=== PATIENT | male | born 1945 | race Caucasian/White ===

== ENCOUNTER 2018-05-16 09:57 | Inpatient (IN) ==
--- NOTE | 2018-05-01 16:30 | PAT Medication Instructions ---
Medication Instructions Date of Service May 01, 2018 Home Medications aspirin [Aspir-81] 81 mg PO HS cilostazol 50 mg PO BID coenzyme Q10 [CoQ-10] 200 mg PO QAM isosorbide mononitrate 30 mg PO QAM omeprazole 20 mg PO QAM ASK your prescriber and surgeon cilostazol (pletal) 50 mg PO BID (in order for spinal anesthesia, this medication needs to be stopped 4 days prior to surgery- please check with prescribing doctor to see if this is okay) STOP taking 2 weeks before surgery (or as soon as possible if surgery is within 2 weeks) coenzyme Q10 [CoQ-10] 200 mg PO QAM Take morning of surgery isosorbide mononitrate 30 mg PO QAM omeprazole 20 mg PO QAM Take evening before surgery aspirin [Aspir-81] 81 mg PO HS Other Notes If you have any questions please call us at [phone] or [phone] or [phone] or [phone]
--- NOTE | 2018-05-02 11:34 | Anesthesiology Consultation ---
Date of Service May 02, 2018 Assessment & Plan (1) Encounter for pre-operative examination: - Cardiovascular= 12/27/17= "doing well from a CV standpoint." Continued on current regimen. Note sent to PCP regarding 08/2017 stress test- per cardio "Mild apical inferior wall ischemia on 08/2017 stress test; reviewed by cardio and felt "no significant abnormalities." Note written to cardio regarding stress test/upcoming procedure. Response received= "Patient may proceed with above procedure with the following cardiac risk in having a perioperative event" at "low" risk. - Elevated creatinine on preop labs 1.83. Received response from nephro= 05/03/18= Baseline creatinine 1.4-1.5. "No apparent cause for increased creat; no nephro-toxic meds. Recommend renal U/S.. urine cx-- if no infxn or obstruction ok to proceed. Avoid IV contrast; BP extremes, NSAIDs." No infection on urine culture done 05/07/18. No obstruction per 05/09/18 renal U/S. Repeat BMP 05/07/18 with improved creatinine at 1.4. - Patient advised that Pletal (cilostazol) needs to be held 4 days prior to surgery in order for spinal anesthesia; per cardio, okay to hold Pletal 7 days prior to surgery per cardio; okay to continue ASA perioperatively per surgeon. - Patient requests heavier sedation if possible (does not want to hear surgery).* Chart Review Chart Review: Acceptable Risk for Surgery and Patient seen in Pre Admission Testing Teaching & Discussion Pre-Anesthesia Teaching/Discussion Notes: Instructed NPO after midnight before surgery,except medications with 15 cc of water. Medication instructions provided according to the PAT guidelines. History Surgery Operation Date: 05/16/18 12:45 Proposed Procedures p Right Total Knee Replacement - Shaquille Swartz MD Height/Weight Height: 5 ft 10 in Weight: 86.7 kg Allergies Allergy/AdvReac Type Severity Reaction Status Date / Time morphine Allergy Rash Verified 04/23/18 15:48 zolpidem [From Ambien] Allergy HEADACHES Verified 04/23/18 15:48 pregabalin [From Lyrica] AdvReac GI UPSET/ Verified 04/23/18 15:48 DOES NOT TOLERATE Medications Home Medications Medication Instructions Recorded Confirmed Last Taken aspirin [Aspir-81] 81 mg PO HS 04/23/18 04/23/18 Unknown cilostazol 50 mg PO BID 04/23/18 04/23/18 Unknown coenzyme Q10 [CoQ-10] 200 mg PO QAM 04/23/18 04/23/18 Unknown isosorbide mononitrate 30 mg PO QAM 04/23/18 04/23/18 Unknown omeprazole 20 mg PO QAM 04/23/18 04/23/18 Unknown Past Medical History Medical History Chronic kidney disease STAGE III Degenerative disc disease GERD (gastroesophageal reflux disease) CONTROLLED Hypertension Osteoarthritis PAD (peripheral artery disease) S/P VASCULAR STENTS X 2 (2006), LEFT POPLITEAL ARTHRECTOMY/ANGIOPLASTY + LEFT ANTERIOR TIBIAL (2010, 2013), LEFT TIBIOPERONEAL TRUNK ANGIOPLASTY (2013), LEFT ANTERIOR TIBIAL/POPLITEAL ARTERY ANGIOPLASTY (08/2017) Past Surgical History Surgical History History of adenoidectomy History of arthroscopy RIGHT KNEE MENISCUS REPAIR History of cardiac cath STENTS X2 (1998) History of cholecystectomy History of colonoscopy History of esophagogastroduodenoscopy (EGD) History of nasal septoplasty History of tonsillectomy History of vascular surgery S/P VASCULAR STENTS X 2 (2006), LEFT POPLITEAL ARTHRECTOMY/ANGIOPLASTY + LEFT ANTERIOR TIBIAL (2010, 2013), LEFT TIBIOPERONEAL TRUNK ANGIOPLASTY (2013), LEFT ANTERIOR TIBIAL/POPLITEAL ARTERY ANGIOPLASTY (08/2017) Past Anesthesia History No Family Hx of Anesthesia Complications and Other Awareness with cholecystectomy. No issues with other surgeries/anesthesia. History of PONV No Motion Sickness Screening History of Motion Sickness: No Social History Smoking Status: Never smoker Do You Dip or Chew Tobacco: No Hx Alcohol Use: No Alcohol Intake Frequency Comment: 0 Hx Substance Use: No substance use type: does not use Exercise / Class Metabolic Activity II 4-5 Yardwork/Stairs/Walk up hill (WALKING/EXERCISING DAILY*) Review of Systems Chronic cough. Patient denies chest pain, shortness of breath, dyspnea on exertion, wheezing, palpitations. Physical Exam Vital Signs VITALS BP 137/73 P 71 TEMP 97.4 SP02 96%RA RESP 18 PHYSICAL Full neck and c-spine range of motion. Full TMJ range of motion. TMD 3 finger breaths Mallampati Score 2 Dentition: full dentures upper/lower, edentulous Lungs: clear throughout to auscultation Cardiac: regular rate and rhythm, no murmurs noted Spine: normal Carotid arteries: negative bruit Extremities: no edema Testing Electrocardiogram Date: 08/15/17 Findings: + NSR @ (67) Chest X-Ray Date: 05/02/18 Findings: + NAD Stress Test Date: 08/15/17 Type: nuclear (Lexiscan) Myocardial perfusion is "mildly abnormal" with mild apical inferior wall ischemia. No evidence of previous myocardial infarction. LVEF 63%. 73%MPHR Other Testing Renal U/S: 05/09/18: no evidence of bladder outlet obstruction. Very mild prostatic gland enlargement with coarse calcifications suggesting remote prostatitis versus sequela of BPH. No hydroureteronephrosis or nephroureterolithiasis. Laboratory Results 05/02/18 11:50 05/02/18 11:50 Blood Type B Positive 05/02/18 11:50 Antibody Screen NEGATIVE 05/02/18 11:50 PT 11.4 Seconds (9.0-12.0) 05/02/18 11:50 INR 1.1 (0.9-1.1) 05/02/18 11:50 APTT 23.7 Seconds (21.0-31.0) 05/02/18 11:50 05/07/18 SODIUM 143 POTASSIUM 4.4 CHLORIDE 105 CO2 28 BUN 18 CREATININE 1.4 GLUCOSE 102 UA + bacteria URINE CULTURE no growth
--- NOTE | 2018-05-02 12:28 | XRay Report ---
XR chest Pre-admission PA/Lat CLINICAL HISTORY: pat preoperative evaluation COMPARISON STUDY: No previous studies for comparison. FINDINGS: The bones soft tissues and hemidiaphragms are normal. The cardiomediastinal silhouette is n ormal. The lungs are clear. The pulmonary vasculature is normal. IMPRESSION: Negative chest. The above report was generated using voice recognition software. It may contain grammatical, syntax or spelling errors. Electronically signed by: Boubacar Gagnon M.D. 05/02/2018 12:26 PM
[2018-05-02 12:32] LABS: Basophils # (auto) 0.01 K/uL (0-0.2); Basophils % (auto) 0.1 %; Eosinophils # (auto) 0.09 K/uL (0-0.5); Eosinophils % (auto) 1.3 %; Hematocrit (blood only) 41.7 % (42-52); Hemoglobin 13.9 g/dL (14.0-18.0); Immature Granulocytes # (auto) 0.03 K/uL (0.00-0.02); Immature Granulocytes % (auto) 0.4 %; Lymphocytes # (auto) 1.76 K/uL (1.2-3.4); Lymphocytes % (auto) 26.2 %; Mean Corpuscular Hgb Conc 33.3 g/dL (32-36); Mean Corpuscular Volume 102.2 fL (80-100); Mean Platelet Volume 11.6 fL (7.4-10.4); Monocytes # (auto) 1.05 K/uL (0.11-0.59); Monocytes % (auto) 15.6 %; Neutrophils # (auto) 3.79 K/uL (1.4-6.5); Neutrophils % (auto) 56.4 %; Platelet Count 163 K/uL (130-400); RDW Coefficient of Variation 12.8 % (11.5-14.5); RDW Standard Deviation 48.1 fL (36.4-46.3); Red Blood Count 4.08 M/uL (4.7-6.1); White Blood Count 6.73 K/uL (4.8-10.8)
[2018-05-02 12:44] LABS: INR 1.1 (0.9-1.1); Partial Thromboplastin Ratio 0.9; Partial Thromboplastin Time 23.7 Seconds (21.0-31.0); Prothrombin Time 11.4 Seconds (9.0-12.0)
[2018-05-02 13:19] LABS: BUN Creatinine Ratio 7.7 (10-20); Calcium 8.9 mg/dl (8.5-10.1); Creatinine Clr Calc Pharmacy 36.6 ml/min; Est GFR (African American) 41.2; Est GFR (Non-African American) 35.6; Potassium 4.5 mmol/L (3.5-5.1)
--- NOTE | 2018-05-12 10:43 | History and Physical Report ---
DATE OF ADMISSION: 05/16/2018 CHIEF COMPLAINT: Right knee pain and discomfort. HISTORY OF PRESENT ILLNESS: The patient is a 72-year-old gentleman from [place], who presents for surgical treatment of his right knee. He has got a several year history of gradually increasing right knee pain, discomfort, unresponsive to conservative treatment. He has undergone 3 previous knee arthroscopies with the last one done by Dr. Wilkinson several years ago. He has been through extensive conservative care including steroid shots and viscosupplementation, which do not help much anymore. The steroid shots helped her for couple days and the viscosupplementation did not help at all. He has nighttime discomfort. The more he walks, the more he limps. He describes global pain throughout the knee. It swell as the day goes on. He now would like to proceed with surgical treatment. PAST MEDICAL HISTORY: Significant for: 1. Stage III kidney disease and cannot take NSAIDs as a result. 2. Coronary artery disease status post stent placement, without sequelae and off all blood thinners. 3. Low back pain/sciatica. PAST SURGICAL HISTORY: Include right knee scope x3. ALLERGIES: AMBIEN, MORPHINE, CRESTOR, LYRICA. CURRENT MEDICINES: Include: 1. Atorvastatin 20 mg. 2. Aspirin 81 mg. 3. Coenzyme Q. 4. Omeprazole 20 mg a day. 5. Isosorbide 30 mg a day. 6. Pletal 50 mg a day. SOCIAL HISTORY: A 72-year-old male. He is from [place]. He is fairly active. FAMILY HISTORY: Noncontributory. REVIEW OF HISTORY: Negative for diabetes, neurologic problems, vascular problems, bleeding disorders. No chest pain or shortness of breath. No DVT or PE. No known bleeding problems. PHYSICAL EXAMINATION: GENERAL: Reveals a healthy, pleasant, middle-aged male. Looks to be in good health. HEENT: Benign. NECK: Supple. No lymphadenopathy. LUNGS: Clear to auscultation. HEART: Regular rate and rhythm. ABDOMEN: Soft, nontender, nondistended. EXTREMITIES: Grossly neurovascularly intact except as follows. Examination of the right leg reveals the patient walks independently. He has got slight varus alignment to his knee. He is tender over the medial joint line. Small knee effusion. He has a varus thrust with weightbearing. Range of motion is 5-10 degrees short of full extension to 120 degrees of flexion. No pain with hip motion. X-RAYS: X-rays of the right knee reviewed. It shows advanced medial compartment DJD. He has got complete loss of his medial joint space, particularly in the 40 degree flexion films. He does have a small ossicle off the lateral aspect of his patella, likely an accessory ossification center. ASSESSMENT: A 72-year-old gentleman with a history of multiple knee arthroscopies in the past with advanced right knee medial compartment degenerative joint disease. He has failed conservative treatment and would like to have his right knee replaced. PLAN: We will plan on taking him to the Operating Room and doing a knee replacement surgery. We did talk about partial versus full knee replacement and he just wanted to have the whole thing fixed. We will do a total knee replacement with the risks and benefits of this procedure were explained to the patient include but not limited to DVT, PE, , infection, neurological injury, vascular injury, bleeding problem, pain, limited range of motion, failure to relieve symptoms, incomplete relieve of symptoms, need for further surgery in the future, fracture, leg length inequality, nerve palsy, persistent pain, etc. The patient understands and desires to proceed. Informed consent was obtained. As far as discharge plans, he is planning to be discharged home using [facility]. We will have to be careful with NSAID use due to his kidney disease. We will follow his BUN and creatinine throughout his hospital stay.
[~2018-05-16 09:57] MED LIST: ACETAMINOPHEN 500 MG TAB PO SCH; BUPIVACAINE 0.5 % 5 MG/1 ML PF 10ML VIAL ONE; BUPIVACAINE LIPOSOME/PF 266 MG, BUPIVACAINE/EPINEPHRINE 50 ML, SODIUM CHLORIDE 0.9% 30 ... INFIL SCH; CEFAZOLIN 2000MG 2,000 MG/15 ML SYR IV SCH; EPINEPHrine INJ 1 MG/ML AMP ONE; FAMOTIDINE 20 MG TAB PO SCH; GABAPENTIN 300 MG PO SCH; LR 500ML BOLUS, THEN 15ML/HR IV SCH; LR 60ML/HR IV SCH; ROPIVACAINE 0.5% 5 MG/ML 30 ML VIAL ONE
--- NOTE | 2018-05-16 10:52 | History & Physical Bridge Note ---
Date of Service May 16, 2018 History & Physical Bridge Note I have examined the patient, reviewed the History & Physical and in the interval since the performance of the History & Physical I have noted the following changes of clinical significance: no changes noted
[2018-05-16] MEDS ORDERED: PROPOFOL IV EMULSION 10 MG/ML 20 ML VIAL IV ONE ×3 (12:15→14:29)
[2018-05-16] MEDS ORDERED: ONDANSETRON INJ 2 MG/ML 2 ML VIAL ONE (12:15)
[2018-05-16] MEDS ORDERED: fentaNYL citrate 100 MCG/2 ML VIAL ONE (12:15)
[2018-05-16] MEDS ORDERED: MIDAZOLAM HCL 1 MG/ML 2ML VIAL ONE (12:15)
[2018-05-16] MEDS ORDERED: LIDOCAINE HCL 2% 2 ML VIAL/AMP(20MG/ML) INFIL ONE (12:15)
[2018-05-16] MEDS ORDERED: DEXAMETHASONE SOD INJ 4 MG/ML VIAL ONE (12:15)
[2018-05-16] MEDS ORDERED: BUPIVACAINE LIPOSOME 1.3% 266 MG/20 ML VIAL ONE (12:45)
[2018-05-16] MEDS ORDERED: SODIUM CHLORIDE 0.9% PF 50 ML VIAL ONE (12:45)
[2018-05-16] MEDS ORDERED: EPINEPHrine INJ 1 MG/ML AMP ONE (12:46)
[2018-05-16] MEDS ORDERED: BACITRACIN INJ 50,000 UNIT VIAL ONE (12:46)
[2018-05-16] MEDS ORDERED: BUPIVACAINE 0.25% 30 ML VIAL ONE (12:46)
[2018-05-16] MEDS ORDERED: ePHEDrine sulfate 50 MG/ML AMP IV PRN (13:06)
[2018-05-16] MEDS ORDERED: ATROPINE SULFATE 0.1 MG/ML 10ML SYR IV PRN (13:06)
[2018-05-16] MEDS ORDERED: KETAMINE HCL INJ 50 MG/ML 10 ML VIAL ONE (13:20)
[2018-05-16] MEDS ORDERED: TRANEXAMIC ACID 1,000 MG in 0.9 % SODIUM CHLORIDE 100 ML IV STA (14:39)
--- NOTE | 2018-05-16 14:57 | Post Operative Brief Note ---
Immediate Post Op Note v1 Date of Surgery May 16, 2018 Pre & Post Diagnosis Operation Date: 05/16/18 12:45 Pre-Op Diagnosis: Right knee degenerative joint disease Post-Op Diagnosis: Right knee degenerative joint disease Procedure Operation Date: 05/16/18 12:45 Actual Procedures p Right Total Knee Replacement(Right) - Shaquille Swartz MD Surgeon Shaquille Swartz MD Acquisitions Editor Thea, PAC Estimated Blood Loss 50 Findings Consistent with Post-Op Diagnosis Fluids 2000 cc Specimens Right Knee Drains Quiros Catheter (16fr quiros placed by Neisha Abraham RN, without difficulty; quiros demonstrates clear yellow urine.Output measured and recorded by anesthesia.) Anesthesia Type Spinal MAC Complications none Disposition Accompanied Patient To Recovery: No Disposition: Recovery Room
--- NOTE | 2018-05-16 15:25 | XRay Report ---
TWO VIEWS RIGHT KNEE CLINICAL HISTORY: Postoperative examination. FINDINGS: AP and crosstable lateral portable views of the right knee are obtained. A right knee arthr oplasty is in near anatomic alignment. There has been undersurface remodeling of the patella. No acut e fracture is seen. There are expected postoperative changes around the knee including skin clips, so ft tissue edema, and subcutaneous gas. IMPRESSION: Expected postoperative changes status post right knee arthroplasty. No acute fracture is seen. Electronically signed by: Santiago Campbell M.D. 05/16/2018 3:24 PM
[2018-05-16] MEDS ORDERED: LORazepam 0.5 MG/1 ML VIAL IV STA ×2 (15:36→15:48)
[2018-05-16] MEDS ORDERED: LORazepam 2 MG/4 ML VIAL ONE (15:37)
--- NOTE | 2018-05-16 15:49 | Anesthesiology Progress Note ---
Date of Service May 16, 2018 Anesthesia Post Procedure Vital Signs Vital Signs: Temp Pulse Pulse Resp BP BP Pulse Ox 05/16/18 15:40 79 16 143/84 H 95 05/16/18 15:30 88 16 148/81 H 94 05/16/18 15:20 79 16 121/69 96 05/16/18 15:10 73 16 101/57 L 95 05/16/18 15:01 36.3 C L 75 16 99/55 L 94 05/16/18 11:05 36.5 C 72 18 147/86 H 94 Notes Mental Status: alert / awake / arousable Patient Amnestic to Procedure: Yes Nausea / Vomiting: adequately controlled Pain: adequately controlled Airway Patency, RR, SpO2: stable & adequate BP & HR: stable & adequate Hydration State: stable & adequate Anesthetic Complications: no major complications apparent and Pt Satisfied with anesthetic care
[2018-05-16] MEDS ORDERED: BISACODYL 10 MG SUPP PR PRN (16:24)
[2018-05-16] MEDS ORDERED: MAGNESIUM HYDROXIDE SUSP 30 ML UDC PO PRN (16:24)
[2018-05-16] MEDS ORDERED: NO NSAIDS SCH (16:24)
[2018-05-16] MEDS ORDERED: ALUMINUM/MAGNESIUM SUSP 30 ML UDC PO PRN (16:24)
[2018-05-16] MEDS ORDERED: NALOXONE HCL 0.4 MG/1 ML VIAL/CARP IV PRN (16:24)
[2018-05-16] MEDS ORDERED: SODIUM CHLORIDE 0.9% 1000ML 1,000 ML IV SCH (16:24)
[2018-05-16] MEDS ORDERED: ONDANSETRON INJ 2 MG/ML 2 ML VIAL IV PRN (16:24)
[2018-05-16] MEDS ORDERED: HYDROmorphone HCL 2 MG TAB PO PRN (16:24)
[2018-05-16] MEDS ORDERED: TAMSULOSIN HCL 0.4 MG CAP PO PRN (16:24)
[2018-05-16] MEDS ORDERED: METOCLOPRAMIDE HCL INJ 5 MG/ML 2 ML VIAL IV PRN (16:24)
[2018-05-16] MEDS: FERROUS GLUCONATE 324 MG TAB PO SCH (17:46)
[2018-05-16] MEDS: ASCORBIC ACID 500 MG TAB PO SCH (17:46)
[2018-05-16] MEDS: TRAMADOL HCL 50 MG TABLET PO PRN (19:28)
[2018-05-16] MEDS: CEFAZOLIN 2000MG 2,000 MG/15 ML SYR IV SCH (19:55)
[2018-05-16] MEDS: SENNA 8.6 MG TAB PO SCH (20:53)
[2018-05-16] MEDS: ASPIRIN 81 MG ECTAB PO SCH (20:53)
[2018-05-16] MEDS: CILOSTAZOL 100 MG TAB PO SCH (20:54)
[2018-05-16] MEDS: DOCUSATE SODIUM 100 MG CAP PO SCH (20:54)
[2018-05-16] MEDS ORDERED: TRANEXAMIC ACID 1,000 MG in 0.9 % SODIUM CHLORIDE 100 ML IV SCH (21:00)
[2018-05-16] MEDS: ACETAMINOPHEN 500 MG TAB PO SCH (21:59)
--- NOTE | 2018-05-17 03:33 | Operative Report ---
DATE OF OPERATION: 05/16/2018 SURGEON: Shaquille Swartz MD BARREL AND RECEIVER ALIGNER: BLOA Gunn PREOPERATIVE DIAGNOSIS: Right knee degenerative joint disease. POSTOPERATIVE DIAGNOSIS: Right knee degenerative joint disease. PROCEDURE PERFORMED: Right cemented posterior stabilized total knee arthroplasty. COMPLICATIONS: None. ESTIMATED BLOOD LOSS: 50 mL FLUID REPLACEMENT: 2000 mL crystalloid fluid replacement. ANESTHESIA: Spinal with adductor canal block. DRAINS: None. TOURNIQUET TIME: Sixty-four minutes at 300 mmHg. OPERATIVE INDICATIONS: The patient is a 72-year-old gentleman who has had a long history of knee problems. He underwent a previous knee arthroscopy done elsewhere, which helped him fairly minimally. Over the years, he developed increased pain and discomfort. He has failed all conservative care. He cannot really take NSAIDs due to some stage III kidney disease. X-rays show progressive knee arthritis. He elected to proceed with total knee arthroplasty. We did talk about partial versus full knee replacement. He wanted no partial knee just wanted his whole knee replaced. OPERATIVE FINDINGS: Operative findings revealed extensive grade 4 changes in the medial compartment. The rest of his knee joint was fairly well maintained. He had a moderate-sized joint effusion. OPERATIVE IMPLANTS: Operative implants consisted of: 1. A Biomet Vanguard size 67.5 right posterior stabilized femoral component. 2. A Biomet size 71 tibial tray. 3. A 12 posterior stabilized polyethylene insert. 4. A 34 x 8.5 all-poly patella. OPERATIVE PROCEDURE: The patient taken to the operating room, identified, and placed on the operating table in supine position. All contact areas were appropriately padded. IV antibiotics were provided by anesthesia team. Spinal anesthetic and adductor canal block had been provided in the holding area. Carrizales catheter was placed in sterile fashion. A right thigh tourniquet was then placed. The right lower extremity was then prepped and draped in usual sterile fashion. The right leg was elevated and exsanguinated with Esmarch and tourniquet was placed at 300 mmHg. An anterior approach to the right knee was then performed through a longitudinal incision centered at the patella. Sharp dissection was carried through the subcutaneous tissue down to the level of the extensor mechanism. A medial parapatellar arthrotomy incision was made. Some subperiosteal dissection was carried out medially. The fat pad was resected from beneath the patellar tendon. The lateral patellofemoral ligament was released. Even doing this, I could not nessa the patella due to its very wide nature and this is extra ossicle laterally. We subluxated this laterally. The knee was flexed. The osteophytes were taken off distal femur. The ACL and PCL were then released from the distal femur, tibia subluxated anteriorly. The external tibial alignment jig was then placed in the anterior face of the tibia and adjusted 16 mm medially. Proximal tibial cut was made to remove about a millimeter or 2 of bone off the most deficient aspect of the medial tibial plateau. The tibia was then sized to a size 71. Attention was then drawn to the femur. The distal femur was entered with a sharp drill bit. Intramedullary canal was suctioned. A right 6-degree valgus cutting guide was placed. Distal femoral cutting block was pinned in place. Distal femoral cut was made to take an additional 3 mm of bone off the distal femur. The femur was then sized to a size 67.5. We did downsize this slightly. The AP cutting block was pinned parallel to the epicondylar axis, which was 4 degrees of external rotation. The anterior cut, anterior chamfer cut, posterior cut, posterior chamfer cuts were made. Box cutting guide was placed just slightly lateral and the box cut was made. The knee was flexed. The remnants of medial and lateral menisci were excised. Osteophytes taken off the posterior aspect of the femur. The trial femoral component was placed. Tibial tray was pinned in maximum external rotation and the drill and stem punch were used to create defect in proximal tibia for the tibial tray. I then trialed the knee and the 12 insert fit most appropriately. Attention was then turned to the patella. The patella was cleaned of all soft tissues. Patella measured 23 mm in thickness and was cut down to a 14. I sized it to a size 34 patella. Lug holes were drilled for a 34 patella. Lateral osteophyte as well as his extra ossicle laterally was removed, which allowed more mobility to the kneecap. Patellar button was placed. Knee was taken through range of motion and patella tracked nicely with no thumbs test. Attention was then drawn toward placement of permanent components. All trial components removed. Bone plug was placed in the distal femur to limit blood loss. A double batch of Palacos G cement was mixed. A Biomet Vanguard size 7.5 right posterior stabilized femoral component, size 71 tibial tray, 12 mm posterior stabilized polyethylene insert, and a 34 x 8.5 all-poly patella cemented in place. Knee was brought into full extension until cement hardened. Final cement check was then performed. Pericapsular tissues were injected with a total of 100 mL combination of 20 mL of Exparel, 30 mL of normal saline, 50 mL of 0.25% Marcaine with epinephrine. The patient did receive 1 g tranexamic acid. The tourniquet was then let down for final tourniquet time of 64 minutes. Hemostasis was assured with use of electrocautery. The extensor mechanism was then closed with a combination of #1 PDS suture and #1 Vicryl suture in a [id number] fashion. Extensor mechanism was checked and found to be intact. The subcutaneous tissue then closed with 2-0 Dexon suture in a buried interrupted fashion. Skin was closed with skin jewel. Leg was then cleaned and dried and a sterile dressing of Xeroform, 4 x 4's, sterile cast padding, Frank bandage were applied. The patient then transferred to the recovery room in stable condition. The patient tolerated the procedure well with no complications. All needle and sponge counts were correct at the end of the operation. I attest to the content of the Intraoperative Record and any orders documented therein. Any exception s are noted below.
[2018-05-17] MEDS: ACETAMINOPHEN 500 MG TAB PO SCH ×3 (05:10→22:10)
[2018-05-17] MEDS: CEFAZOLIN 2000MG 2,000 MG/15 ML SYR IV SCH (05:10)
[2018-05-17 06:18] LABS: Hematocrit (blood only) 35.9 % (42-52); Hemoglobin 12.3 g/dL (14.0-18.0); Mean Corpuscular Hgb Conc 34.3 g/dL (32-36); Mean Corpuscular Volume 99.4 fL (80-100); Mean Platelet Volume 11.6 fL (7.4-10.4); Platelet Count 147 K/uL (130-400); RDW Coefficient of Variation 12.7 % (11.5-14.5); RDW Standard Deviation 46.4 fL (36.4-46.3); Red Blood Count 3.61 M/uL (4.7-6.1); White Blood Count 13.85 K/uL (4.8-10.8)
[2018-05-17 06:55] LABS: BUN Creatinine Ratio 11.3 (10-20); Calcium 8.2 mg/dl (8.5-10.1); Creatinine Clr Calc Pharmacy 48.8 ml/min; Est GFR (African American) 58.5; Est GFR (Non-African American) 50.4
--- NOTE | 2018-05-17 07:15 | Orthopedic Progress Note ---
Date of Service May 17, 2018 Assessment & Plan (1) Total knee replacement status: POD #1 from TKA. Continue PT/OT-WBAT Dvt prophylaxis: teds, scds, aspirin Pain control. Discharge planning for possibly tomorrow He was seen and examined by Dr. Swartz today Subjective POD#1 from right TKA. Having some knee pain but he says he can handle it. No chest pain or shortness of breath. Was up and walking some yesterday. Physical Exam Vital Signs (Past 24 Hours): Last Vital Signs Temp 36.6 C 05/17/18 07:05 Pulse 85 05/17/18 07:05 Resp 18 05/17/18 07:05 BP 138/76 05/17/18 07:05 Pulse Ox 96 05/17/18 07:05 Musculoskeletal: alert and oriented. NAD Right leg: dressing clean, dry, intact. Able to do a leg left. Moves toes appropriately. NVI
[2018-05-17] MEDS: MULTIVITAMIN TAB PO SCH (08:07)
[2018-05-17] MEDS: PANTOprazole 40 MG TAB PO SCH (08:07)
[2018-05-17] MEDS: CILOSTAZOL 100 MG TAB PO SCH ×2 (08:07→20:49)
[2018-05-17] MEDS: ISOSORBIDE MONO EXTENDED REL 30 MG TABCR PO SCH (08:08)
[2018-05-17] MEDS: FERROUS GLUCONATE 324 MG TAB PO SCH ×2 (08:09→17:07)
[2018-05-17] MEDS: DOCUSATE SODIUM 100 MG CAP PO SCH ×2 (08:09→20:49)
[2018-05-17] MEDS: ASCORBIC ACID 500 MG TAB PO SCH ×2 (08:09→17:07)
[2018-05-17] MEDS: ASPIRIN 81 MG ECTAB PO SCH ×2 (08:09→20:49)
--- NOTE | 2018-05-17 08:36 | Anesthesiology Progress Note ---
Date of Service May 17, 2018 Anesthesia Post Procedure Vital Signs Vital Signs: Temp Pulse Pulse Resp BP BP Pulse Ox 05/17/18 07:05 36.6 C 85 18 138/76 96 05/17/18 03:03 36.9 C 90 18 122/60 93 05/16/18 23:14 36.8 C 86 16 149/74 H 94 05/16/18 19:05 36.7 C 94 H 18 157/83 H 94 05/16/18 17:57 89 17 157/79 H 93 05/16/18 16:58 36.2 C L 72 18 139/70 97 05/16/18 15:57 36.4 C L 05/16/18 15:50 36.4 C L 77 16 139/85 96 05/16/18 15:40 79 16 143/84 H 95 05/16/18 15:30 88 16 148/81 H 94 05/16/18 15:20 79 16 121/69 96 05/16/18 15:10 73 16 101/57 L 95 05/16/18 15:01 36.3 C L 75 16 99/55 L 94 05/16/18 11:05 36.5 C 72 18 147/86 H 94 Notes Mental Status: alert / awake / arousable and see notes below Patient Amnestic to Procedure: Yes Nausea / Vomiting: adequately controlled Pain: adequately controlled Airway Patency, RR, SpO2: stable & adequate BP & HR: stable & adequate Hydration State: stable & adequate Neuraxial Anesthesia: was administered and sensory block resolved Anesthetic Complications: no major complications apparent and Pt Satisfied with anesthetic care
[2018-05-17] MEDS ORDERED: NON-FORMULARY MEDICATION (Coenzyme Q10 [Coq-10] 200 MG) PO SCH (09:00)
[2018-05-17] MEDS: HYDROmorphone INJ 0.5 MG/0.5 ML SYR IV PRN ×2 (09:20)
[2018-05-17] MEDS ORDERED: HYDROmorphone HCL 2 MG TAB PO PRN (12:53)
[2018-05-17] MEDS ORDERED: HYDROmorphone INJ 1 MG/ML SYRINGE IV PRN ×2 (12:57→23:57)
[2018-05-17] MEDS ORDERED: HYDROmorphone INJ 1 MG/ML SYRINGE ONE (13:05)
[2018-05-17] MEDS: SENNA 8.6 MG TAB PO SCH (20:49)
[2018-05-17] MEDS: TRAMADOL HCL 50 MG TABLET PO PRN (20:51)
--- NOTE | 2018-05-17 22:48 | XRay Report ---
SINGLE VIEW CHEST CLINICAL HISTORY: Diaphoresis. FINDINGS: 2 AP, portable, upright chest radiographs are compared to study dated 05/02/2018. The examin ation is degraded by portable technique and patient rotation. The heart is mildly enlarged and there is atherosclerotic calcification of the thoracic aorta. The pulmonary vasculature is noncongested. N o airspace consolidation or large pleural effusion is identified. No pneumothorax is seen. The skelet al structures are osteopenic. There is chronic posttraumatic deformity of the right clavicle. IMPRESSION: Mild cardiac enlargement with no acute cardiopulmonary abnormality. Electronically signed by: Santiago Campbell M.D. 05/17/2018 10:47 PM
[2018-05-17] MEDS ORDERED: SODIUM CHLORIDE 0.9% 500 ML IV ONE (22:51)
[2018-05-17 23:02] LABS: Basophils # (auto) 0.01 K/uL (0-0.2); Basophils % (auto) 0.1 %; Hematocrit (blood only) 34.5 % (42-52); Hemoglobin 11.9 g/dL (14.0-18.0); Immature Granulocytes # (auto) 0.11 K/uL (0.00-0.02); Immature Granulocytes % (auto) 0.8 %; Lymphocytes # (auto) 1.69 K/uL (1.2-3.4); Lymphocytes % (auto) 12.4 %; Mean Corpuscular Hgb Conc 34.5 g/dL (32-36); Mean Corpuscular Volume 98.9 fL (80-100); Mean Platelet Volume 10.9 fL (7.4-10.4); Monocytes # (auto) 2.79 K/uL (0.11-0.59); Monocytes % (auto) 20.5 %; Neutrophils # (auto) 8.99 K/uL (1.4-6.5); Neutrophils % (auto) 66.2 %; Platelet Count 127 K/uL (130-400); RDW Coefficient of Variation 12.8 % (11.5-14.5); RDW Standard Deviation 46.2 fL (36.4-46.3); Red Blood Count 3.49 M/uL (4.7-6.1); White Blood Count 13.59 K/uL (4.8-10.8)
[2018-05-17 23:14] LABS: Partial Thromboplastin Ratio 0.8; Partial Thromboplastin Time 21.9 Seconds (21.0-31.0)
--- NOTE | 2018-05-17 23:26 | Hospitalist Consultation ---
Date of Consultation May 17, 2018 Assessment & Plan (1) Total knee replacement status: Final Assessment and Recommendations as follows : Situational hypertension, tachycardia secondary to postop pain, nausea, constipation hx CAD PVD status post surgery CRI, creatinine better than baseline Hypokalemia secondary to emesis postop anemia, thrombocytopenia Hyperglycemia rule out DM Optimize analgesia Bowel regimen Replace potassium Trend H&H, transfuse PRBC if hemoglobin less than 8 (hx CAD/PVD as per records) Monitor platelets in light of home aspirin, Cilostazol Rx Check hemoglobin A1c DVT prophylaxis. SCDs as per postop Orthopedic orders Thank you very much for this consultation. Dr. Swartz will follow patient's progress. History of Present Illness Reason for Consultation: Tachycardia, hypertension Requesting Physician: Dr. Marcial Attending Physician: Shaquille Swartz MD History of Present Illness PCP : Dr. Frederick History obtained from patient and records. Medical history significant for CAD, PVD status post surgery, CRI (baseline creatinine 1.4), chronic anemia (baseline hemoglobin of 13). Patient underwent right knee surgery yesterday. Today patient noted increased discomfort on the right knee unresponsive to pain regimen. Around 10 PM last night, patient felt hot, nauseous, uncomfortable. No chest pain, no S OB. Patient diaphoretic as per RN. Patient denies abdominal pain, dysuria symptoms. Last BM was yesterday. SBP 170-180s, cardiac rate 120s. Patient subsequently had 3 episodes of emesis which added to his comfort. Patient currently comfortable. Family History : Heart disease, lung cancer Personal/Social history : Non-smoker, no EtOH intake, retired from factory work Allergies Allergy/AdvReac Type Severity Reaction Status Date / Time morphine Allergy Rash Verified 05/16/18 11:02 zolpidem [From Ambien] Allergy HEADACHES Verified 05/16/18 11:02 pregabalin [From Lyrica] AdvReac GI UPSET/ Verified 05/16/18 11:02 DOES NOT TOLERATE Home Medications Home Medications Medication Instructions Recorded Confirmed Type aspirin [Aspir-81] 81 mg PO HS 04/23/18 05/16/18 History cilostazol 50 mg PO BID 04/23/18 05/16/18 History coenzyme Q10 [CoQ-10] 200 mg PO QAM 04/23/18 05/16/18 History isosorbide mononitrate 30 mg PO QAM 04/23/18 05/16/18 History omeprazole 20 mg PO QAM 04/23/18 05/16/18 History acetaminophen [Pain Reliever] 1,000 mg PO Q8 30 Days #180 tab 05/17/18 Rx aspirin [Ecotrin Low Strength] 81 mg PO BID 45 Days #90 tab 05/17/18 Rx hydromorphone 2 - 4 mg PO Q4 PRN 15 Days #40 tab 05/17/18 Rx Patient History Social History Communication Ability: Effective Beliefs That Will Affect Care: None Current Living Situation: Spouse Other Information That Helps Us Care for You: No Feels Safe at Home: Yes Safety Concerns: Feels Safe At This Time Smoking Status: Never smoker Hx Alcohol Use: No Hx Substance Use: No Review of Systems As per HPI, all 10 systems reviewed, all other ROS negative Physical Exam Vital Signs (Past 24 Hours): Last Vital Signs Temp 37.2 C 05/17/18 22:02 Pulse 123 H 05/17/18 22:02 Resp 20 05/17/18 22:02 BP 173/100 H 05/17/18 22:02 Pulse Ox 92 05/17/18 22:02 Physical Exam: GENERAL: Comfortable, slightly anxious, watching television, no respiratory distress SKIN: Pallor, warm HEENT: Bespectacled, pale palpebral conjunctivae, no ptosis, dry buccal mucosa NECK : Supple, no tenderness CHEST : CTA, no tenderness HEART : Tachycardic , no obvious murmurs ABDOMEN: Some distention, nontender EXTREMITIES : Dressing noted over RLE swelling, some RLE tenderness, no other conspicuous deformities noted NEUROLOGIC : Coherent, no facial asymmetry, no other gross focality Results & Data Laboratory Results Laboratory Results WBC 13.59 K/uL (4.8-10.8) H 05/17/18 22:47 RBC 3.49 M/uL (4.7-6.1) L 05/17/18 22:47 Hgb 11.9 g/dL (14.0-18.0) L 05/17/18 22:47 Hct 34.5 % (42-52) L 05/17/18 22:47 MCV 98.9 fL (80-100) 05/17/18 22:47 MCH 34.1 pg (25-34) H 05/17/18 22:47 MCHC 34.5 g/dL (32-36) 05/17/18 22:47 RDW Std Deviation 46.2 fL (36.4-46.3) 05/17/18 22:47 RDW Coeff of Esteban 12.8 % (11.5-14.5) 05/17/18 22:47 Plt Count 127 K/uL (130-400) L 05/17/18 22:47 MPV 10.9 fL (7.4-10.4) H 05/17/18 22:47 Immature Gran % (Auto) 0.8 % 05/17/18 22:47 Neut % (Auto) 66.2 % 05/17/18 22:47 Lymph % (Auto) 12.4 % 05/17/18 22:47 [place] % (Auto) 20.5 % 05/17/18 22:47 Eos % (Auto) 0.0 % 05/17/18:47 Baso % (Auto) 0.1 % 05/17/18:47 Immature Gran # (Auto) 0.11 K/uL (0.00-0.02) H 05/17/18 22:47 Neut # (Auto) 8.99 K/uL (1.4-6.5) H 05/17/18 22:47 Lymph # (Auto) 1.69 K/uL (1.2-3.4) 05/17/18 22:47 [place] # (Auto) 2.79 K/uL (0.11-0.59) H 05/17/18 22:47 Eos # (Auto) 0.00 K/uL (0-0.5) 05/17/18:47 Baso # (Auto) 0.01 K/uL (0-0.2) 05/17/18 22:47 PT 11.4 Seconds (9.0-12.0) 05/02/18 11:50 INR 1.1 (0.9-1.1) 05/02/18 11:50 APTT 21.9 Seconds (21.0-31.0) 05/17/18 22:47 PTT Ratio 0.8 05/17/18:47 Sodium 133 mmol/L (136-145) L 05/17/18:47 Potassium 3.4 mmol/L (3.5-5.1) L 05/17/18 22:47 Chloride 97 mmol/L (98-107) L 05/17/18 22:47 Carbon Dioxide 29 mmol/L (21-32) 05/17/18 22:47 Anion Gap 7.0 (3-11) 05/17/18 22:47 BUN 14 mg/dl (7-18) 05/17/18 22:47 Creatinine 1.26 mg/dl (0.6-1.4) 05/17/18 22:47 Est Cr Clr Drug Dosing 53.1 ml/min 05/17/18 22:47 Est GFR ( Amer) 64.7 05/17/18 22:47 Est GFR (Non-Af Amer) 55.8 05/17/18 22:47 BUN/Creatinine Ratio 11.3 (10-20) 05/17/18 22:47 Glucose 142 mg/dl (70-99) H 05/17/18 22:47 POC Glucose 145 (70-99) H 05/17/18 22:30 Lactate 1.6 mmol/L (0.4-2.0) 05/17/18 22:47 Calcium 8.2 mg/dl (8.5-10.1) L 05/17/18 22:47 Magnesium 1.8 mg/dl (1.8-2.4) 05/17/18 22:47 Total Bilirubin 1.4 mg/dl (0.2-1) H 05/17/18 22:47 AST 24 U/L (15-37) 05/17/18 22:47 ALT 22 U/L (12-78) 05/17/18 22:47 Alkaline Phosphatase 57 U/L (45-117) 05/17/18 22:47 Troponin I < 0.015 ng/ml (0-0.045) 05/17/18 22:47 Total Protein 6.7 gm/dl (6.4-8.2) 05/17/18 22:47 Albumin 3.4 gm/dl (3.4-5.0) 05/17/18 22:47 Globulin 3.3 gm/dl (2.5-4.0) 05/17/18 22:47 Albumin/Globulin Ratio 1.0 (0.9-2) 05/17/18 22:47 Procalcitonin 0.12 ng/ml (0-0.5) 05/17/18 22:47 Blood Type B Positive 05/02/18 11:50 Antibody Screen NEGATIVE 05/02/18 11:50 Diagnostic Findings Chest x-ray showed cardiomegaly EKG as per my interpretation : Rate 120, sinus tachycardia, T wave flattening septal leads
[2018-05-17 23:37] LABS: Alanine Aminotransferase 22 U/L (12-78); Albumin Level 3.4 gm/dl (3.4-5.0); Alkaline Phosphatase 57 U/L (45-117); Aspartate Aminotransferase 24 U/L (15-37); BUN Creatinine Ratio 11.3 (10-20); Bilirubin,Total 1.4 mg/dl (0.2-1); Blood Urea Nitrogen 14 mg/dl (7-18); Calcium 8.2 mg/dl (8.5-10.1); Carbon Dioxide 29 mmol/L (21-32); Chloride 97 mmol/L (98-107); Creatinine Clr Calc Pharmacy 53.1 ml/min; Est GFR (African American) 64.7; Est GFR (Non-African American) 55.8; Globulin 3.3 gm/dl (2.5-4.0); Glucose 142 mg/dl (70-99); Magnesium 1.8 mg/dl (1.8-2.4); Potassium 3.4 mmol/L (3.5-5.1); Sodium 133 mmol/L (136-145); Total Protein 6.7 gm/dl (6.4-8.2); Troponin I < 0.015 ng/ml (0-0.045)
[2018-05-17] MEDS ORDERED: POTASSIUM CHLORIDE 10 MEQ TABCR PO STA (23:56)
[2018-05-17] MEDS ORDERED: PROCHLORPERAZINE 5 MG in SYRINGE 4 ML IV PRN (23:56)
[2018-05-17] MEDS ORDERED: POLYETHYLENE (MIRALAX) 17 GM PACK PO STA (23:58)
[2018-05-18] MEDS ORDERED: MAGNESIUM SULFATE / D5W 1 GM/100 ML BAG IV ONE
[2018-05-18] MEDS ORDERED: DOCUSATE SODIUM/SENNA 50/8.6MG TAB PO SCH ×2 (00:10→00:30)
[2018-05-18] MEDS ORDERED: NSS + 20MEQ KCL 20 MEQ/1,000 ML BAG IV ONE (00:15)
[2018-05-18] MEDS ORDERED: CALCIUM GLUCONATE 10% 10 ML VIAL IV STA (04:20)
[2018-05-18] MEDS ORDERED: CALCIUM GLUCONATE 10% 1,000 MG in SODIUM CHLORIDE 0.9% 50 ML IV ONE (04:45)
[2018-05-18] MEDS: ACETAMINOPHEN 500 MG TAB PO SCH (05:31)
[2018-05-18 05:45] LABS: Hematocrit (blood only) 33.4 % (42-52); Hemoglobin 11.5 g/dL (14.0-18.0); Immature Granulocytes # (auto) 0.04 K/uL (0.00-0.02); Immature Granulocytes % (auto) 0.3 %; Lymphocytes # (auto) 1.05 K/uL (1.2-3.4); Lymphocytes % (auto) 8.4 %; Mean Corpuscular Hgb Conc 34.4 g/dL (32-36); Mean Corpuscular Volume 98.5 fL (80-100); Mean Platelet Volume 11.3 fL (7.4-10.4); Monocytes # (auto) 2.74 K/uL (0.11-0.59); Neutrophils % (auto) 69.3 %; Platelet Count 134 K/uL (130-400); RDW Coefficient of Variation 12.7 % (11.5-14.5); RDW Standard Deviation 45.5 fL (36.4-46.3); Red Blood Count 3.39 M/uL (4.7-6.1); White Blood Count 12.43 K/uL (4.8-10.8)
[2018-05-18 06:12] LABS: Calcium 7.8 mg/dl (8.5-10.1); Creatinine Clr Calc Pharmacy 59.2 ml/min; Est GFR (African American) 73.8; Est GFR (Non-African American) 63.7; Potassium 3.9 mmol/L (3.5-5.1)
[2018-05-18 07:12] LABS: Estimated Average Glucose 131 mg/dl; Hemoglobin A1C 6.2 % (4.5-5.6)
[2018-05-18] MEDS: ISOSORBIDE MONO EXTENDED REL 30 MG TABCR PO SCH (07:37)
[2018-05-18] MEDS: CILOSTAZOL 100 MG TAB PO SCH (07:38)
--- NOTE | 2018-05-18 07:40 | Progress Note ---
DATE: 05/18/2018 SUBJECTIVE: A 72-year-old gentleman postop day 2 from a right knee replacement. Still having quite a bit of pain. He has been nauseated likely secondary to the pain medicine. Denies any chest pain or shortness of breath. Not feeling dizzy or lightheaded. OBJECTIVE: VITAL SIGNS: Temperature 37.7. Vital signs stable. Some mild tachycardia. GENERAL: Physical examination shows a pleasant, middle-aged male. He is sitting up in bed and does not look that uncomfortable. LUNGS: Clear to auscultation. HEART: Has regular rate and rhythm. ABDOMEN: Soft, nontender, nondistended. EXTREMITIES: Grossly neurovascularly intact except as follows: Examination of the right leg reveals the dressing to be clean, dry and intact. Some moderate swelling. Minimal drainage. Difficulty doing a straight leg raise. He can dorsiflex and plantarflex his foot appropriately. LABORATORY DATA: His hemoglobin 11.5, hematocrit 33.4. Electrolytes are stable. Creatinine is actually improved at 1.13. ASSESSMENT: A 72-year-old gentleman postop day 2 from a right knee replacement, doing okay. Still having a quite a bit of pain. Nausea, likely secondary to the pain medicine. PLAN: 1. DVT prophylaxis including thigh-high TEDs, SCDs, and aspirin twice a day. 2. PT/OT. Weight bear as tolerated. Right total knee protocol. 3. Pain control. We will continue current pain regimen, increase as needed. Unfortunately, he cannot take NSAIDs due to chronic renal insufficiency, interestingly his renal function is actually as best as I have seen it. 4. Disposition: Plan to discharge to home with some home health later today.
[2018-05-18] MEDS: ASPIRIN 81 MG ECTAB PO SCH (08:28)
[2018-05-18] MEDS: PANTOprazole 40 MG TAB PO SCH (08:28)
[2018-05-18] MEDS: ASCORBIC ACID 500 MG TAB PO SCH (08:29)
[2018-05-18] MEDS: MULTIVITAMIN TAB PO SCH (08:29)
[2018-05-18] MEDS: FERROUS GLUCONATE 324 MG TAB PO SCH (08:29)
--- NOTE | 2018-05-23 14:54 | Discharge Summary ---
ADMITTING PHYSICIAN AND SURGEON: Dr. Shaqulile Swartz. ADMITTING DIAGNOSIS: Right knee degenerative joint disease. SURGERY PERFORMED: Right total knee arthroplasty. SECONDARY DIAGNOSES: Stage III kidney disease, cannot take NSAIDs, coronary artery disease status post stent placement, low back pain, sciatica. CONSULTS: Dr. Harley from the hospitalist service for tachycardia and hypertension postoperatively. HISTORY AND PHYSICAL EXAMINATION: Well documented in the patient's chart. HOSPITAL COURSE: The patient was admitted on 05/16/2018 underwent total knee arthroplasty, tolerated the procedure well. There were no complications. He was transferred to the PACU postoperatively and later to the orthopedic for further care. He was given Ancef for antibiotic prophylaxis, GEORGES stockings, SCDs and aspirin for DVT prophylaxis. Hemoglobin, hematocrit and vital signs were monitored during his hospital stay and remained stable. He did not require any blood transfusions. He did have some hypertension and tachycardia postoperatively as well as some nausea and vomiting. The hospitalist service was consulted for assistance in additional management. There were no complications during his hospital stay. By postoperative day 2, he was still having quite a bit of pain as well as some nausea and episode of vomiting; however, he is limited as far as his pain management as he cannot take NSAIDs due to chronic renal insufficiency. He was participating in physical therapy. On postop day 2, he was discharged home, set up with home health services, given printed discharge instructions including new prescriptions for extra strength Tylenol, aspirin, hydromorphone as well as Zofran. Continue his home medicines. Continue physical therapy, weightbearing as tolerated, GEORGES stockings. Follow up approximately 2 weeks postoperatively or sooner if there are any problems or concerns.
== END 2018-05-18 12:15 | disposition home health service (06) | DRG 470 ==
LOC: ASU 09:57 → 3E 15:02